=== PATIENT | female | born 1980 | race Caucasian/White ===

== ENCOUNTER 2023-03-25 15:27 | Outpatient (AMB) | payer OTHER, SELFPAY ==
--- NOTE | 2023-03-25 15:31 | A.OFFVIS_ITS ---
Intake Vital Signs 03/25/23 15:37 Height 5 ft 4 in Weight 211 lb BMI 36.2 BP 136/84 Blood Pressure Location Rt brachial Position Sitting Intake Visit Reasons: E-CONTACT OFFICER: Snoring-LVM Intake Note: Patient presents for snoring. Patient states My has notice some apnea where i wake up gasping for air. Allergies No Known Allergies Allergy (Verified 03/25/23 15:39) HPI HPI Comments History of Present Illness Details 42 y/o female patient presents for new i n-person visit for sleep co nsultation. Pt reports snoring, witnessed apnea spells, and gasping arousals. Pt has GERD and uses Pepcid almost every night. She feels very tired all day and takes a nap 1.5 hr almost every day. Sleep questionnaire: Have you ever been diagnosed with a sleep disorder? No. Have you ever had a sleep study in the past? No. Have you ever been treated for a sleep disorder? No. Do you take medications for a sleep disorder? No. Do you snore? Yes. Do you wake up gasping at night? Yes. Do you have episodes of apneas? Yes, If yes, are they witnessed? Yes. Do you have episodes of nocturnal chest pain or dyspnea? Yes. Do you have difficulty initiating sleep? No. Do you have difficulty maintaining sleep? No. Do you wake up tired? Yes. Do you have headaches upon awakening? Yes. Do you wake up with dry mouth or throat? Yes, sometimes. Do you have GERD? Yes. Do you have nocturia? No. Do you have nocturnal leg cramps? No. Do you have symptoms of restless legs? No. Do you act out your dreams? No. Sleep hygiene questionnaire: What is your usual sleep routine? Usual bedtime is at 12-1 am ; Usual wake up time is at 7-8 am. Do you take naps? 12:30 to 2 pm. Is your sleep environment cool, dark, and quiet? Yes. Do you exercise? Cardio sometime. Do you take caffeine or other stimulants? Coffee in the morning, 1-2 cups, ice tea in the afternoon but not after 5 pm. Do you use electronics in bed? Yes. What is your work schedule? N/A. Hypersomnolence questionnaire: Do you have daytime tiredness or fatigue? Yes. Do you easily fall asleep when inactive? Yes. Have you ever had episodes of sudden weakness? No. Have you ever had episodes of sudden weakness associated with strong emotions? No. [facility] Surgical History (Updated 03/25/23 @ 15:39 by DAYRON Diaz) H/O adenoidectomy H/O section Family History (Updated 03/25/23 @ 15:40 by DAYRON Diaz) Father Osteoarthritis Mother Atrial fibrillation Social History (Updated 03/25/23 @ 15:41 by DAYRON Diaz) Alcohol intake: current Patient Tobacco Use Status: Never used Tobacco Review of Systems Const All systems reviewed & are unremarkable except as noted in HPI and below ENT Reports Normal hearing present Neuro Reports Normal hearing present Physical Exam Vital Signs: Last Vital Signs BP 136/84 03/25/23 15:37 BMI result Body Mass Index 36.2 Const General: cooperative and tired appearing Nutritional Appearance: obese Orientation/consciousness: patient oriented x3 HEENT Throat: Yes other (mallampati grade 4) Neck Neck: Yes full ROM and Yes supple Resp Effort & Inspection: normal respiratory effort and able to speak in complete sentences Neuro General: patient oriented x3, gait normal, moves all extremities and no focal motor deficits Cranial nerves: Yes Bilaterally intact EOM present, Yes Normal facial strength present, Yes Midline tongue present, Yes Symmetric palate elevation present, Yes Normal hearing present, Yes Ability to bilaterally rotate head present and Yes Ability to bilaterally elevate shoulders present Cognition (Neuro): normal cognition Gait exam (Neuro): Normal gait present Motor exam (neuro): 5/5 motor strength present throughout, Pronator motor function not present and no tremor noted Psych Appearance: grossly normal Mental Status: mental status grossly normal Speech and movement: Normal speech and movement present Affect: normal affect Attitude: cooperative Assessment & Plan Assessment & Plan (1) Daytime sleepiness: Code(s): R40.0 - Somnolence (2) Snoring: Code(s): R06.83 - Snoring Plan Pt is advised to undergo sleep study to assess for sleep apnea. Will f/u with pt after study to discuss results and appropriate treatment options. Sleep hygiene education provided. Advised patient to limit electronic use before bedtime. Pt to call with any worsening concerns or questions. Orders: Orders RT home sleep study Today R06.83 - Snoring, R40.0 - Somnolence Coding Level of Care Code New Pt Level 3 (30640) Diagnoses Daytime sleepiness R40.0 Snoring R06.83
[2023-03-25 15:37] VITALS: BP 136/84; BMI 36.2
== END 2023-03-25 16:01 | disposition home or self-care (01) ==
PROVIDERS: PCP Family Medicine; Visit Provider Nurse Practitioner Family
DX: R40.0 Somnolence (principal); R06.83 Snoring
CPT/HCPCS: 99203

== ENCOUNTER → 2023-03-25 15:27 | Outpatient (BNVA) | payer OTHER, SELFPAY | PROVIDERS: PCP Family Medicine; Visit Provider Nurse Practitioner Family ==

== ENCOUNTER → 2023-05-14 15:56 | Outpatient (REF) | payer OTHER, SELFPAY | LOC: HO.SL 15:56 | PROVIDERS: PCP Family Medicine; Visit Provider Nurse Practitioner Family | DX: R06.83 Snoring (principal); R40.0 Somnolence; G47.33 Obstructive sleep apnea (adult) (pediatric) | CPT/HCPCS: 95806 ==

== ENCOUNTER → 2023-05-14 16:03 | Outpatient (BNV) | payer OTHER, SELFPAY | PROVIDERS: PCP Family Medicine; Visit Provider Psychiatry & Neurology Neurology | DX: G47.33 Obstructive sleep apnea (adult) (pediatric) (principal) | CPT/HCPCS: 95806 ==

== ENCOUNTER 2023-07-28 14:28 | Outpatient (AMB) | payer OTHER, SELFPAY ==
--- NOTE | 2023-07-28 14:36 | A.OFFVIS_ITS ---
Intake Vital Signs 07/28/23 14:45 Height 5 ft 4 in Weight 212 lb 8 oz BMI 36.5 BP 130/82 Blood Pressure Location Lt brachial Position Sitting Pulse 70 Pulse Source Pulse Oximeter Pulse Oximetry (%) 99 Oxygen Delivery Method Room Air Intake Visit Reasons: 4 mo f/u- Snoring - CONF Intake Note: Patient presets for 4 month f/u. Allergies No Known Allergies Allergy (Verified 07/28/23 14:44) HPI HPI Comments History of Present Illness Details 42 y/o female patient presents for follo w up of sleep study. The home sleep study result was significant for a moderate degree of sleep apnea. The AHI was 20/hr and oxygen zaynab was 77%. Pt started APAP [id number]. The CPAP compliance and therapy response (04/23/23-07/21/23) reviewed. The usage days 53 days, and average usage hours 6 hrs. The max pressure was 15 and the residual AHI was 10/hr. Pt reports she sleeps better, and feels rested and has more energy during daytime. She does not fall asleep during daytime. [facility] Surgical History H/O adenoidectomy H/O section Family History Father Osteoarthritis Mother Atrial fibrillation Social History Alcohol intake: current Patient Tobacco Use Status: Never used Tobacco Review of Systems Const All systems reviewed & are unremarkable except as noted in HPI and below ENT Reports Normal hearing present Neuro Reports Normal hearing present Physical Exam Vital Signs: Last Vital Signs Pulse 70 07/28/23 14:45 BP 130/82 07/28/23 14:45 Pulse Ox 99 07/28/23 14:45 Oxygen Delivery Method Room Air 07/28/23 14:45 BMI result Body Mass Index 36.5 Const General: cooperative Nutritional Appearance: obese Orientation/consciousness: patient oriented x3 HEENT Throat: Yes other (mallampati grade 4) Neck Neck: Yes full ROM and Yes supple Resp Effort & Inspection: normal respiratory effort and able to speak in complete sentences Neuro General: patient oriented x3, gait normal, moves all extremities and no focal motor deficits Cranial nerves: Yes Bilaterally intact EOM present, Yes Normal facial strength present, Yes Midline tongue present, Yes Symmetric palate elevation present, Yes Normal hearing present, Yes Ability to bilaterally rotate head present and Yes Ability to bilaterally elevate shoulders present Cognition (Neuro): normal cognition Gait exam (Neuro): Normal gait present Motor exam (neuro): 5/5 motor strength present throughout, Pronator motor function not present and no tremor noted Psych Appearance: grossly normal Mental Status: mental status grossly normal Speech and movement: Normal speech and movement present Affect: normal affect Attitude: cooperative Assessment & Plan Assessment & Plan (1) SKIP (obstructive sleep apnea): Comment: Moderate degree of sleep apnea. The AHI was 20/hr and oxygen zaynab was 77%. Code(s): G47.33 - Obstructive sleep apnea (adult) (pediatric) Plan Changed APAP pressure to [id number], and will monitor the residual AHI. Stressed compliance, use CPAP nightly and more than 4 hrs. Wt reduction advised. Coding Level of Care Code Est Pt Level 3 (94631) Diagnoses SKIP (obstructive sleep apnea) G47.33
[2023-07-28 14:45] VITALS: BP 130/82; PULSE 70; O2SAT 99; BMI 36.5
== END 2023-07-28 15:05 | disposition home or self-care (01) ==
PROVIDERS: PCP Family Medicine; Visit Provider Nurse Practitioner Family
DX: G47.33 Obstructive sleep apnea (adult) (pediatric) (principal)
CPT/HCPCS: 99213

== ENCOUNTER → 2023-07-28 14:28 | Outpatient (BNVA) | payer OTHER, SELFPAY | PROVIDERS: PCP Family Medicine; Visit Provider Nurse Practitioner Family ==

== ENCOUNTER 2024-06-03 11:29 | Outpatient (AMB) | payer OTHER, SELFPAY ==
[2024-06-03 11:44] VITALS: BP 122/76; PULSE 81; O2SAT 97; BMI 37.8
--- NOTE | 2024-06-03 11:44 | MHC.OFFVIS ---
Vital Signs 06/03/24 11:44 Height 5 ft 4 in Weight 220 lb 6 oz BMI 37.8 BP 122/76 Blood Pressure Location Lt brachial Position Sitting Pulse 81 Pulse Source Pulse Oximeter Pulse Oximetry (%) 97 Oxygen Delivery Method Room Air Intake Visit Reasons: Follow up Intake Note: Patient would like to Discuss Zepbound Allergies No Known Allergies Allergy (Verified 06/03/24 11:45) Medication List - Last Reconciled 06/03/24 by WINIFRED Nichols sertraline 50 mg PO DAILY HPI Comments Details: 43 y/o female patient presents for follow up of moderate obstructive sleep apnea 05/15/2023, HST showed moderate degree of obstructive sleep apnea, AHI was 20/hr and oxygen zaynab was 77%. Since the last visit, patient's APAP settings were adjusted to 5-20 cm H2O. Patient is sleeping well with the use, however her residual AHI is still slightly elevated at 8/hour. She is curious about using Zepbound for tx of SKIP. [place] [phone] Email: [email or web address] Compliance Report Usage 05/04/2024 - 06/02/2024 Usage days 30/30 days (100%) >= 4 hours 30 days (100%) < 4 hours 0 days (0%) Usage hours 209 hours 54 minutes Average usage (total days) 7 hours 0 minutes Average usage (days used) 7 hours 0 minutes Median usage (days used) 6 hours 51 minutes Total used hours (value since last reset - 06/02/2024) 2,337 hours AirS[employer] 10 AutoSet Serial number [id number] Mode AutoSet Min Pressure 5 cmH2O Max Pressure 20 cmH2O EPR Fulltime EPR level 2 Response Standard Therapy Pressure - cmH2O Median: 14.2 95th percentile: 18.8 Maximum: 19.7 Leaks - L/min Median: 0.7 95th percentile: 11.5 Maximum: 23.5 Events per hour AI: 7.3 HI: 1.5 AHI: 8.8 PFSH Surgical History H/O adenoidectomy H/O section Family History Father Osteoarthritis Mother Atrial fibrillation Social History Alcohol intake: current Patient Tobacco Use Status: Never used Tobacco Physical Exam Vital Signs: Last Vital Signs Pulse 81 06/03/24 11:44 BP 122/76 06/03/24 11:44 Pulse Ox 97 06/03/24 11:44 Oxygen Delivery Method Room Air 06/03/24 11:44 BMI result Body Mass Index 37.8 Const General: no acute distress Orientation/consciousness: patient oriented x3 Resp Effort & Inspection: normal respiratory effort and able to speak in complete sentences Neuro General: patient oriented x3 Psych Mental Status: mental status grossly normal Speech and movement: Clear speech present Attitude: cooperative Assessment & Plan Assessment & Plan (1) SKIP (obstructive sleep apnea): Comment: Moderate degree of sleep apnea. The AHI was 20/hr and oxygen zaynab was 77%. Code(s): G47.33 - Obstructive sleep apnea (adult) (pediatric) Category: Medical (2) Nocturnal hypoxemia: Code(s): G47.34 - Idiopathic sleep related nonobstructive alveolar hypoventilation Category: Medical (3) Obesity, Class II, BMI 35-39.9: Code(s): E66.812 - Obesity, class 2 Category: Medical Plan Pt advised to undergo in-lab PAP titration sleep study, to identify optimal treatment pressure of obstructive sleep apnea and nocturnal hypoxemia, as patient continues to elevated residual AHI despite optimal use of APAP. In the meantime, continue APAP 5-20 cmH2O w/ EPR 2 nightly > 4 hours, as pt continues to have good clinical effect from use.. Clean CPAP machine and supplies routinely. Change CPAP supplies routinely. Use distilled water in CPAP water reservoir. In regards to Zepbound tx for tx of moderate-severe SKIP, at this time our office would defer this to weight management clinic. Pt to contact us or respiratory company with any questions or concerns. Will follow-up upon review of above and patient to follow-up in clinic in 6 months or sooner prn. Orders: Orders RT PSG in-lab sleep titration Today G47.33 - Obstructive sleep apnea (adult) (pediatric), G47.34 - Idiopathic sleep related nonobstructive alveolar hypoventilation Coding Level of Care Code Est Pt Level 4 (88064) Diagnoses SKIP (obstructive sleep apnea) G47.33 Nocturnal hypoxemia G47.34 Obesity, Class II, BMI 35-39.9 E66.812
== END 2024-06-03 12:19 | disposition home or self-care (01) ==
PROVIDERS: PCP Family Medicine; Visit Provider Nurse Practitioner Family
DX: G47.33 Obstructive sleep apnea (adult) (pediatric) (principal); G47.34 Idiopathic sleep related nonobstructive alveolar hypoventilation; E66.812 Obesity, class 2
CPT/HCPCS: 99214

== ENCOUNTER → 2024-07-30 19:30 | Outpatient (REF) | payer OTHER, SELFPAY | LOC: HO.SL 19:30 | PROVIDERS: PCP Family Medicine; Visit Provider Nurse Practitioner Family | DX: G47.33 Obstructive sleep apnea (adult) (pediatric) (principal); G47.34 Idiopathic sleep related nonobstructive alveolar hypoventilation | CPT/HCPCS: 95811 ==

== ENCOUNTER → 2024-07-30 21:21 | Outpatient (BNV) | payer OTHER, SELFPAY | PROVIDERS: PCP Family Medicine; Visit Provider Psychiatry & Neurology Neurology | DX: G47.33 Obstructive sleep apnea (adult) (pediatric) (principal) | CPT/HCPCS: 95811 ==